=== PATIENT | female | born 1965 | race American Indian/Alaskan Native ===

== ENCOUNTER 2019-01-14 22:53 | Emergency (ER) | payer SELFPAY ==
[2019-01-14 23:11] VITALS: BP 154/112
[2019-01-15] MEDS ORDERED: KETOROLAC 30 MG/1 ML INJ IV ONE (00:35)
[2019-01-15] MEDS ORDERED: ONDANSETRON 4 MG/2 ML INJ IV ONE (00:35)
[2019-01-15] MEDS ORDERED: SODIUM CHLORIDE 0.9% 1000 ML 1,000 ML IV ONE (00:35)
[2019-01-15] MEDS ORDERED: dexAMETHasone 20 MG/5 ML VIAL IV ONE (00:35)
--- NOTE | 2019-01-15 01:06 | Emergency Department Report ---
ED General Adult HPI - General Chief complaint: Extremity Injury, Upper Stated complaint: RT HAND/SHOULDER/LEG Time Seen by Provider: 01/15/19 00:17 Source: patient Mode of arrival: Ambulatory Limitations: No Limitations - History of Present Illness Initial comments: Ms Sherman is s 53 y/o aaf with hx of arthralgia with present for right hand shoulder and knee pain for 2.5 months, pt denies fall injury or trauma. pt states etoh daily . pt denies cp no sob , no n/v, no diaphoresis.. Pt states she thinks her arthritis is flaring. Onset/Timin -: month(s) Location: upper extremity, lower extremity Severity scale (0 -10): 4 Quality: aching Consistency: constant Improves with: none Worsens with: none, movement Associated Symptoms: denies: cough, fever/chills, nausea/vomiting, syncope, weakness Treatments Prior to Arrival: none - Related Data Previous Rx's Medication Instructions Recorded Last Taken Type Menthol/Camphor [[place] 1 applicatio TP TID PRN #1 tube 01/15/19 Unknown Rx Ointment] Naproxen 500 mg PO BID PRN #30 tablet 01/15/19 Unknown Rx ED Review of Systems ROS: Stated complaint: RT HAND/SHOULDER/LEG Other details as noted in HPI Constitutional: denies: chills, fever Eyes: denies: eye pain, eye discharge, vision change ENT: denies: ear pain, throat pain Respiratory: denies: cough, shortness of breath, wheezing Cardiovascular: denies: chest pain, palpitations Endocrine: no symptoms reported Gastrointestinal: denies: abdominal pain, nausea, vomiting, diarrhea Genitourinary: denies: urgency, dysuria, discharge Musculoskeletal: arthralgia, myalgia Skin: denies: rash, lesions Neurological: denies: headache, weakness, paresthesias Psychiatric: denies: anxiety, depression Hematological/Lymphatic: denies: easy bleeding, easy bruising ED Past Medical Hx - Past Medical History Previous Medical History?: Yes Hx Hypertension: Yes - Surgical History Past Surgical History?: Yes Additional Surgical History: C-Sec X 3 - Social History Smoking Status: Current Every Day Smoker Substance Use Type: Alcohol, Marijuana - Medications Home Medications: Home Medications Medication Instructions Recorded Confirmed Last Taken Type Menthol/Camphor [[place] 1 applicatio TP TID PRN #1 tube 01/15/19 Unknown Rx Ointment] Naproxen 500 mg PO BID PRN #30 tablet 01/15/19 Unknown Rx ED Physical Exam - General Limitations: No Limitations General appearance: alert, in no apparent distress - Head Head exam: Present: atraumatic, normocephalic - Eye Eye exam: Present: normal appearance, PERRL, EOMI Pupils: Present: normal accommodation - ENT ENT exam: Present: mucous membranes moist - Neck Neck exam: Present: normal inspection. Absent: tenderness, meningismus - Respiratory Respiratory exam: Present: normal lung sounds bilaterally. Absent: respiratory distress - Cardiovascular Cardiovascular Exam: Present: normal rhythm, tachycardia, normal heart sounds - GI/Abdominal GI/Abdominal exam: Present: soft, normal bowel sounds. Absent: distended, tenderness, guarding, rebound, rigid, bruit, hernia - Rectal Rectal exam: Present: deferred - Extremities Exam Extremities exam: Present: normal inspection, full ROM, tenderness (right lateral wrist and anteior knee ), normal capillary refill, joint swelling (right anterior knee ). Absent: pedal edema, calf tenderness - Back Exam Back exam: Present: normal inspection. Absent: full ROM, CVA tenderness (R), CVA tenderness (L), muscle spasm, paraspinal tenderness, vertebral tenderness, rash noted - Neurological Exam Neurological exam: Present: alert, oriented X3, CN II-XII intact, normal gait - Psychiatric Psychiatric exam: Present: normal affect, anxious - Skin Skin exam: Present: warm, dry, intact, normal color. Absent: rash ED Course Vital Signs 01/14/19 23:07 Temperature 98.2 F Pulse Rate 131 H Respiratory 18 Rate Blood Pressure 154/112 O2 Sat by Pulse 94 Oximetry ED Medical Decision Making - Lab Data Result diagrams: 01/15/19 00:52 01/15/19 00:52 Labs 01/15/19 01/15/19 01/15/19 00:52 00:52 00:52 WBC 13.3 H RBC 4.80 Hgb 15.2 H Hct 45.5 H MCV 95 MCH 32 MCHC 33 RDW 12.4 L Plt Count 268 Sodium 139 Potassium 4.0 Chloride 103.5 Carbon Dioxide 21 L Anion Gap 19 BUN 10 Creatinine 0.6 L Estimated GFR > 60 BUN/Creatinine Ratio 17 Glucose 108 H Calcium 9.4 Total Bilirubin 0.50 AST 18 ALT 10 Alkaline Phosphatase 88 Troponin T < 0.010 Total Protein 8.0 Albumin 4.2 Albumin/Globulin Ratio 1.1 Lipase 12 L - Medical Decision Making all symptoms are resolved with medications given in ed. pt states pain relieved to 2/10 and tolerable, heart Rate improved to 87 bpm, bp:147/88, with ivfs, dx , arthralgia, mild dehydration. pt will be dc'd to home in stable condition at this time, pt is currently a/o x 3 ambulatory with steady gait and nad. Critical care attestation.: If time is entered above; I have spent that time in minutes in the direct care of this critically ill patient, excluding procedure time. ED Disposition Clinical Impression: Mild dehydration Arthralgia Qualifiers: Joint pain location: unspecified Qualified Code(s): M25.50 - Pain in unspecified joint Disposition: DC-01 TO HOME OR SELFCARE Is pt being admited?: No Does the pt Need Aspirin: No Condition: Stable Instructions: Dehydration (ED), Arthralgia (ED) Prescriptions: Naproxen 500 mg PO BID PRN #30 tablet PRN Reason: pain Menthol/Camphor [[place] Ointment] 1 applicatio TP TID PRN #1 tube PRN Reason: pain Referrals: DEON BADILLO MD [Staff Physician] - 3-5 Days [facility] [Outside] - 3-5 Days Forms: Work/School Release Form(ED) Time of Disposition: 05:42
[2019-01-15 01:07] LABS: Hematocrit 45.5 % (30.3-42.9); Hemoglobin 15.2 gm/dl (10.1-14.3); Mean Corpuscular HGB Conc 33 % (30-34); Mean Corpuscular Volume 95 fl (79-97); Platelet Count 268 K/mm3 (140-440); Red Cell Distribution Width 12.4 % (13.2-15.2)
[2019-01-15 01:33] LABS: Alanine Aminotransferase 10 units/L (7-56); Albumin 4.2 g/dL (3.9-5); BUN/Creatinine Ratio 17; Blood Urea Nitrogen 10 mg/dL (7-17); Calcium 9.4 mg/dL (8.4-10.2); Hemolysis Index 36
== END 2019-01-15 05:40 | disposition home or self-care (01) ==
LOC: ED 22:53
DX: E86.0 Dehydration (principal); M25.50 Pain in unspecified joint; I10 Essential (primary) hypertension; F17.200 Nicotine dependence, unspecified, uncomplicated; F12.10 Cannabis abuse, uncomplicated; Z79.899 Other long term (current) drug therapy
CPT/HCPCS: 36415; 80053; 83690; 84484; 85027; 96361; 96374; 96375; 99283; J1100; J1885; J2405; J7030